=== PATIENT | male | born 1945 | race Caucasian/White ===

== ENCOUNTER → 2016-11-24 | Outpatient (CLI) | payer MEDICARE ==
[~2016-11-24] MED LIST: ALPR0.254 PO; AMIO200T2 PO; ASPI-482 PO; CONTRAST GIVEN MC PRN; CRESTOR40 MG PO; FLUT9.9S NS; HYDR-2762 PO; IOHEXOL 180 MG/ML 10 ML VIAL. IT ONE; LEVO125T5 PO; LIDOCAINE 1% Multi-Dose 20 ML VIAL. ID ONE; METO100T2 PO; PANT40TA5 PO; PENI500T PO; SUCR1TAB35 PO; TADA5TAB PO
--- NOTE | 2016-11-24 10:30 | KCIC ---
Lumbar Myelogram History: Lumbar radiculopathy, pain into the right leg for 1 to 2 months, previous injury Technique: Patient was informed of the risks of the procedure to include pain, infection, bleeding, seizures, nerve root injury, and allergic reaction to the contrast. All questions were answered. Patient signed a written consent form for a lumbar myelogram. The patient was placed in a prone oblique position on the flouroscopy table. External site of the lower back was prepped and draped in the usual sterile fashion. Betadine was utilized for cleansing solution. 1% lidocaine was utilized for local anesthesia at the anticipated site of puncture right L2-3 interlaminar space. A 19-gauge guiding needle was advanced into the soft tissues. Through the guiding needle, a 25 gauge Rosa needle was advanced until there was return of cerebral spinal fluid. Approximately 15 cc cc of Omnipaque 180 were then injected during fluoroscopic visualization. The needles were removed. Fluoroscopic spot images including standing images were acquired of the lumbar spine. The patient was then transferred to the CT department for CT examination of the lumbar spine. There were no immediate complications. Fluoroscopy time: 55 seconds, 10 fluoroscopic images Findings: There are lateral as well as anterior and posterior extradural defects at L3-4 and L4-5, findings greatest at L3-4. There is minimal anterior extradural defect at L2-3. There is compression deformity greatest of L5 and L4 and to lesser degree inferiorly of L2. Impression: 1. There are anterior as well as posterior and lateral extradural defects at L3-4 and L4-5, minimal anterior extradural defect at L2-3. 2. There is multilevel lumbar compression deformity L5, L4, L2. Electronically signed by: Callum Mccoy MD (11/24/2016 10:27 AM) [email or web address]
--- NOTE | 2016-11-24 10:33 | KCIC ---
LUMBAR SPINE MIN 4V History: Lumbar radiculopathy, pain into the right leg for 1 to 2 months, previous injury Comparison: November 07, 2016 CT lumbar spine exam and also November 01, 2016 lumbar radiographs Findings: 5 views of lumbar spine to include neutral, flexion, and extension lateral radiographs are submitted. There is again superior compression deformity of L5 and L4 and inferiorly of L2. There is bone demineralization. There is facet degenerative change greater inferiorly of the lumbar spine. Intervertebral disc spaces are relatively preserved. AP alignment does not significantly change with flexion or extension, overall within normal limits. Impression: 1. There is again compression deformity of L2, L4, and L5 of uncertain chronicity. 2. There is no evidence of dynamic instability. Electronically signed by: Callum Mccoy MD (11/24/2016 10:30 AM) [email or web address]
--- NOTE | 2016-11-24 11:16 | KCIC ---
CT lumbar spine exam History: Low back pain, right leg pain for 1 to 2 months Technique: CT imaging was performed of the lumbar spine after injection for lumbar myelogram. Multiplanar reconstruction images are submitted. Exposure: One or more of the following individualized dose reduction techniques were utilized for this examination: 1. Automated exposure control 2. Adjustment of the mA and/or kV according to patient size 3. Use of iterative reconstruction technique. Contrast: None Comparison: Noncontrast CT exam November 07, 2016 Findings: There is again superior height loss of L5 and L4 and to lesser degree inferiorly of L2. Degree of osseous retropulsion of the superior margin of L4 is similar. Otherwise AP alignment is adequate. There is bone demineralization. Conus terminates at L1. Intervertebral disc spaces are overall adequate. There is very minimal mid to superior lumbar dextroscoliosis. Visualized descending thoracic aorta above hiatus is dilated up to 4.1 cm. There is atherosclerotic calcification near the superior mesenteric artery origin. 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 T12-L1: Spinal canal and neural foramina are adequate. L1-L2: There is moderate facet degenerative change. Spinal canal is adequate. Neural foramina are overall adequate. L2-L3: There is mild buckling of the ligamentum flavum and [id number] facet degenerative change. Spinal canal is adequate. There is negligible osseous retropulsion of the inferior margin of L2. There is [id number]-[id number] narrowing of the left neural foramen, mild narrowing on the right. L3-L4: There is moderate facet degenerative change and [id number]-tldovdky buckling of the ligamentum flavum. There is osseous retropulsion of the superior margin of L4 and associated minimal disc osteophyte complex. Combination of findings results in moderate narrowing of the far lateral recesses bilaterally, [id number] attenuation of the central canal. There is prominence of posterior epidural fat which contributes to posterior attenuation of the thecal sac. There is fairly severe narrowing of the left neural foramen by disc osteophyte complex and bulge/protrusion, effacement of perineural fat surrounding the exiting left L3 nerve root. There is moderate narrowing of the right neural foramen. L4-L5: There is moderate facet degenerative change and buckling of the ligamentum flavum flavum. There is posterior bulge. There is overall mild spinal stenosis. There is moderate neural foramina compromise greater on the left. L5-S1: There is moderate to severe facet degenerative change. Spinal canal is adequate. Neural foramina are overall adequate. Impression: 1. There are L5, L4, and L2 compression fractures of uncertain chronicity. Correlation with bone scan may be beneficial if concern for more recent fractures. There is bone demineralization. 2. There is moderate narrowing of the far lateral recesses bilaterally at L3-4, mild spinal stenosis L4-5. 3. There is multilevel lumbar neural foramina compromise greatest on the left at L3-4, to lesser degree on the right at L3-4, bilaterally at L4-5, and on the left at L2-3. 4. There is dilatation of the visualized descending thoracic aorta above the hiatus up to 4.1 cm. Electronically signed by: Callum Mccoy MD (11/24/2016 11:13 AM) [id number]
== END | disposition home or self-care (01) ==
LOC: KCIC 08:26
PROVIDERS: ATTEND Neurological Surgery
DX: M54.16 Radiculopathy, lumbar region (principal); M48.56XA Collapsed vertebra, not elsewhere classified, lumbar region, initial encounter for fracture; M48.06 Spinal stenosis, lumbar region; M81.0 Age-related osteoporosis without current pathological fracture; M79.604 Pain in right leg
CPT/HCPCS: 72110; 72132; 72265